=== PATIENT | male | born 1950 | race Caucasian/White ===

== ENCOUNTER 2020-01-09 06:58 | Day surgery (SDC) | payer MEDICARE ==
[2020-01-09] MEDS ORDERED: fentaNYL 100 MCG/2 ML SDV ONE (07:29)
[2020-01-09] MEDS ORDERED: Propofol 200 MG/20 ML SDV ONE (07:29)
[2020-01-09] MEDS ORDERED: Midazolam 1 MG/ML 2 ML SDV ONE (07:29)
[2020-01-09] MEDS ORDERED: Sodium Chloride 0.9% 1,000 ML IV SCH (07:30)
--- NOTE | 2020-01-09 16:37 | OR ---
DATE OF PROCEDURE: 01/09/2020 SURGEON: Delfin Chau MD PROCEDURE: Colonoscopy. FINDINGS: 1. Poor colon prep. 2. No other gross abnormalities. COMPLICATIONS: None. FASHION EDITOR: None. ANESTHESIA: MAC. PREOPERATIVE DIAGNOSIS: Screening colonoscopy. POSTOPERATIVE DIAGNOSIS: Screening colonoscopy. RISKS: Risks, benefits, alternatives, and limitations including, but not limited to infection, bleeding, and perforation were explained to the patient, who wished to proceed. PROCEDURE IN DETAIL: The patient was placed in left lateral decubitus position. Digital rectal exam was performed, which showed mild external hemorrhoids. Scope was introduced and advanced atraumatically to the ileocecal valve. Scope was brought back through the ascending, transverse, descending colon, and retroflexed. No diverticulosis. No polyps. No old or new blood. No masses. The prep was marginally acceptable, approximately 90% of the luminal surface could be seen, due to solid and liquid stool. Suction irrigation techniques were used to maximize observation. No abnormalities on retroflexion. The patient tolerated the procedure well. Delfin Chau MD /[id number]
== END 2020-01-09 10:13 | disposition home or self-care (01) ==
LOC: JP.SDS 06:58
PROVIDERS: ATTEND Surgery
DX: Z12.11 Encounter for screening for malignant neoplasm of colon (principal); K64.4 Residual hemorrhoidal skin tags; I10 Essential (primary) hypertension; E78.5 Hyperlipidemia, unspecified; Z88.0 Allergy status to penicillin
CPT/HCPCS: G0121; J2250; J2704; J3010; J7030